=== PATIENT | male | born 1965 | race Two or more races ===

== ENCOUNTER 2025-08-09 07:24 | Emergency (ER) | payer OTHER ==
[~2025-08-09] VITALS: Ht 175.3 cm; Wt 111.6 kg
[2025-08-09] MEDS ORDERED: GRALISE600 MG (08:22)
[2025-08-09] MEDS ORDERED: 8 HOUR650 MG PO (09:20)
[2025-08-09] MEDS ORDERED: DEXAMETHASONE SODIUM PHOSPHATE 4 MG/ML VIAL IM ONE (09:30)
[2025-08-09] MEDS ORDERED: KETOROLAC TROMETHAMINE 60 MG VIAL IM ONE (09:30)
[2025-08-09] MEDS ORDERED: ORPHENADRINE CITRATE 30 MG/ML AMPUL IM ONE (09:30)
== END 2025-08-09 09:55 | disposition home or self-care (01) ==
LOC: ER 07:24
DX: M25.552 Pain in left hip (principal); I10 Essential (primary) hypertension; E03.9 Hypothyroidism, unspecified